=== PATIENT | male | born 1980 | race Caucasian/White ===

== ENCOUNTER 2017-02-17 13:05 | Emergency (ER) | payer OTHER ==
[~2017-02-17] VITALS: Ht 167.6 cm; Wt 78.0 kg
[2017-02-17 13:51] LABS: BASOPHILS % (AUTO) 1.2 % (0.0-2.0); EOSINOPHILS % (AUTO) 0.9 % (1.0-6.0); LYMPHOCYTES # (AUTO) 1.6 K/uL (1.0-4.8); LYMPHOCYTES % (AUTO) 14.9 % (22.0-44.0); MEAN CORPUSCULAR HEMOGLOBIN 27.7 pg (26.0-34.0); MEAN CORPUSCULAR HGB CONC 31.8 G/dL (31.0-37.0); MEAN CORPUSCULAR VOLUME 87 fL (80-100); MONOCYTES # (AUTO) 0.5 K/uL (0.1-1.0); MONOCYTES % (AUTO) 4.8 % (2.0-9.0); NEUTROPHILS # (AUTO) 8.5 K/uL (1.8-7.7); NEUTROPHILS % (AUTO) 78.2 % (40.0-70.0); PLATELET COUNT (AUTO) 320 K/uL (150-450); RED CELL DISTRIBUTION WIDTH 14.6 % (11.5-14.5); WHITE BLOOD COUNT (AUTO) 10.8 K/uL (4.5-11.0)
[2017-02-17 14:03] LABS: ANION GAP 10 mmol/L (8-16); CARBON DIOXIDE 25 mmol/L (22-29); CHLORIDE 101 mmol/L (98-107); GLOMERULAR FILTR. RATE CALC > 60 mL/min (>60); POTASSIUM 3.9 mmol/L (3.5-5.1); SODIUM SERUM 136 mmol/L (136-145); UREA NITROGEN, BLOOD 19 mg/dL (7-18)
[2017-02-17 14:08] LABS: ALANINE AMINOTRANSFERASE 76 U/L (12-78); ALBUMIN 3.8 g/dL (3.4-5.0); ASPARTATE AMINOTRANSFERASE 42 U/L (15-37); BILIRUBIN,TOTAL 0.5 mg/dL (0.1-1.0); TOTAL PROTEIN, SERUM 7.6 g/dL (6.4-8.2)
[2017-02-17] MEDS ORDERED: GABA-533 PO (14:09)
[2017-02-17] MEDS ORDERED: LISI-661 PO (14:09)
[2017-02-17] MEDS ORDERED: PERCT10 PO (14:09)
[2017-02-17 14:54] VITALS: BP 135/85
== END 2017-02-17 15:12 | disposition home or self-care (01) ==
LOC: EMS 13:07
DX: R07.89 Other chest pain (principal); M48.00 Spinal stenosis, site unspecified; G62.9 Polyneuropathy, unspecified; I10 Essential (primary) hypertension
CPT/HCPCS: 93005; 99285

== ENCOUNTER 2024-04-06 10:06 | Emergency (ER) | payer OTHER ==
[~2024-04-06] VITALS: Ht 177.8 cm; Wt 109.1 kg
[~2024-04-06 10:06] MED LIST: GABA-1201 PO; LISI-893 PO; OXYC-490 PO
[2024-04-06 10:42] VITALS: TEMP 98.3
[2024-04-06] MEDS: SODIUM CHLORIDE 0.9% 1,000 ML IV ONE (11:13)
[2024-04-06] MEDS: ONDANSETRON HCL 4 MG/2 ML VIAL IVP ONE ×2 (11:13→13:06)
[2024-04-06 11:20] LABS: BASOPHILS % (AUTO) 0.1 % (0.0-2.0); EOSINOPHILS % (AUTO) 0 % (1.0-6.0); HEMATOCRIT 42.5 % (41-53); HEMOGLOBIN 14.3 g/dL (13.5-17.5); LYMPHOCYTES # (AUTO) 0.7 K/uL (1.0-4.8); LYMPHOCYTES % (AUTO) 4.1 % (22.0-44.0); MEAN CORPUSCULAR HEMOGLOBIN 28.9 pg (26.0-34.0); MEAN CORPUSCULAR HGB CONC 33.6 G/dL (31.0-37.0); MEAN CORPUSCULAR VOLUME 86 fL (80-100); MONOCYTES # (AUTO) 0.3 K/uL (0.1-1.0); NEUTROPHILS # (AUTO) 16.2 K/uL (1.8-7.7); PLATELET COUNT (AUTO) 221 K/uL (150-450); RED BLOOD CELL COUNT(AUTO) 4.94 MIL/uL (4.50-5.90); RED CELL DISTRIBUTION WIDTH 14.1 % (11.5-14.5); WHITE BLOOD COUNT (AUTO) 17.3 K/uL (4.5-11.0)
[2024-04-06 11:21] LABS: NEUTROPHILS % (AUTO) 93.8 % (40.0-70.0)
[2024-04-06 11:29] LABS: ANION GAP 11 mmol/L (8-16); CALCIUM, TOTAL 8.5 mg/dL (8.8-10.5); CARBON DIOXIDE 22 mmol/L (22-29); CHLORIDE 96 mmol/L (98-107); CREATININE 1.14 mg/dL (0.60-1.30); GLOMERULAR FILTR. RATE CALC > 60 mL/min (>60); GLUCOSE,RANDOM 295 mg/dL (70-110); POTASSIUM 3.5 mmol/L (3.5-5.1); SODIUM SERUM 129 mmol/L (136-145); UREA NITROGEN, BLOOD 12 mg/dL (7-18)
[2024-04-06 12:30] VITALS: BP 137/90; PULSE 88; RESP 18
[2024-04-06] MEDS ORDERED: ACET-66 PO (13:01)
[2024-04-06] MEDS ORDERED: ONDA-104 PO (13:01)
[2024-04-06] MEDS ORDERED: DIPH-1130 PO (13:01)
[2024-04-06] MEDS: DIPHENOXYLATE/ATROP 2.5-0.025 MG TABLET PO ONE (13:06)
== END 2024-04-06 13:28 | disposition home or self-care (01) ==
LOC: EMS 10:06
DX: K52.9 Noninfective gastroenteritis and colitis, unspecified (principal); E11.65 Type 2 diabetes mellitus with hyperglycemia; E87.1 Hypo-osmolality and hyponatremia; I10 Essential (primary) hypertension
CPT/HCPCS: 99284; 96374; 96361; 80048; 85025; 36415; 96376; J2405; J7030

== ENCOUNTER 2024-10-02 13:11 | Emergency (ER) | payer OTHER ==
[~2024-10-02] VITALS: Ht 177.8 cm; Wt 100.0 kg
[~2024-10-02 13:11] MED LIST changes: +ACET-66 PO; +DIPH-1130 PO; +ONDA-104 PO
[2024-10-02 13:27] VITALS: TEMP 97.5
[2024-10-02 14:15] VITALS: BP 122/62; PULSE 88; RESP 17; O2SAT 99
[2024-10-02] MEDS ORDERED: MELO-107 PO (14:58)
[2024-10-02] MEDS ORDERED: LIDO700A15 TP (14:58)
[2024-10-02] MEDS ORDERED: GABA-1181 PO (14:59)
[2024-10-02] MEDS: KETOROLAC TROMETHAMINE 30 MG/ML VIAL IM ONE (15:13)
[2024-10-02] MEDS: TraMADol HCL 50 MG TABLET PO ONE (15:13)
[2024-10-02] MEDS: LIDOCAINE 5% TRANSDERMAL PATCH TD ONE (15:14)
== END 2024-10-02 15:28 | disposition home or self-care (01) ==
LOC: EMS 13:11
DX: M54.9 Dorsalgia, unspecified (principal); I10 Essential (primary) hypertension
CPT/HCPCS: 99283; 96372; J1885

== ENCOUNTER 2025-05-11 12:54 | Emergency (ER) | payer OTHER ==
[~2025-05-11] VITALS: Ht 177.8 cm; Wt 104.5 kg
[~2025-05-11 12:54] MED LIST changes: -ACET-66 PO; -DIPH-1130 PO; +GABA-1181 PO; -GABA-1201 PO; +LIDO-57 TP; +MELO-107 PO; -ONDA-104 PO; -OXYC-490 PO
[2025-05-11 12:55] VITALS: TEMP 97.7
[2025-05-11 13:49] LABS: PLATELET COUNT (AUTO) 312 K/uL (150-450); RED BLOOD CELL COUNT(AUTO) 5.51 MIL/uL (4.50-5.90); RED CELL DISTRIBUTION WIDTH 14.3 % (11.5-14.5); WHITE BLOOD COUNT (AUTO) 9.0 K/uL (4.5-11.0)
[2025-05-11] MEDS: SODIUM CHLORIDE 0.9% 1,000 ML IV ONE (13:53)
[2025-05-11] MEDS: MORPHINE SULFATE 2 MG/ML SYRINGE IVP ONE (13:53)
[2025-05-11 13:56] VITALS: BP 137/96; PULSE 103; RESP 18; O2SAT 99
[2025-05-11 13:58] LABS: CALCIUM, TOTAL 8.9 mg/dL (8.8-10.5); CREATININE 1.06 mg/dL (0.60-1.30); GLOMERULAR FILTR. RATE CALC > 60 mL/min (>60); SODIUM SERUM 130 mmol/L (136-145); UREA NITROGEN, BLOOD 15 mg/dL (7-18)
[2025-05-11 14:01] LABS: GLUCOSE,RANDOM 484 mg/dL (70-110)
[2025-05-11 14:05] LABS: ACETONE,BLOOD NEGATIVE (NEGATIVE); ASPARTATE AMINOTRANSFERASE 15 U/L (15-37); CREATINE KINASE, TOTAL ONLY 155 U/L (39-308); TOTAL PROTEIN, SERUM 7.1 g/dL (6.4-8.2)
[2025-05-11 14:06] LABS: TROPONIN I-HIGH SENSITIVITY 5 ng/L (<76)
[2025-05-11] MEDS: INSULIN REGULAR, HUMAN 100 UNITS/ML IVP ONE (14:17)
[2025-05-11 14:41] LABS: APPEARANCE,URINE CLEAR (CLEAR); GLUCOSE, URINE (UA) >=1000 mg/dL (NEGATIVE); LEUKOCYTE ESTERASE ,URINE NEGATIVE (NEGATIVE); NITRATE,URINE NEGATIVE (NEGATIVE); OCCULT BLOOD,URINE NEGATIVE (NEGATIVE); SPECIFIC GRAVITIY, URINE 1.029 (1.003-1.030)
[2025-05-11 14:51] LABS: SQUAMOUS EPITHELIAL CELL,UR Rare /LPF (None Seen)
[2025-05-11] MEDS ORDERED: IBUP-1492 PO (15:29)
[2025-05-11] MEDS ORDERED: METF-1211 PO (15:29)
[2025-05-11] MEDS ORDERED: ACET-3385 PO (15:29)
[2025-05-11 15:35] LABS: GLUCOMETER DEV NAME(LOC) ERT.7; GLUCOSE,POINT OF CARE 280 MG/DL (70-110)
== END 2025-05-11 15:55 | disposition home or self-care (01) ==
LOC: EMS 12:55
DX: E11.65 Type 2 diabetes mellitus with hyperglycemia (principal); G89.29 Other chronic pain; I10 Essential (primary) hypertension; M51.372 Other intervertebral disc degeneration, lumbosacral region with discogenic back pain and lower extremity pain; Z79.899 Other long term (current) drug therapy
CPT/HCPCS: 99285; 96374; 71045; 96361; 96375; 80048; 80076; 81001; 82009; 82550; 82962; 83880; 84484; 85025; 36415; 93005; J1815; J2270; J7030

== ENCOUNTER 2025-05-20 13:36 | Emergency (ER) | payer OTHER ==
[~2025-05-20] VITALS: Ht 177.8 cm; Wt 105.0 kg
[~2025-05-20 13:36] MED LIST changes: +ACET-3385 PO; +IBUP-1492 PO; +METF-1211 PO
[2025-05-20 13:41] VITALS: TEMP 98.1
[2025-05-20] MEDS ORDERED: METH-812 PO (17:36)
[2025-05-20] MEDS ORDERED: GABA-1181 PO (17:36)
[2025-05-20] MEDS ORDERED: MELO-108 PO (17:36)
[2025-05-20] MEDS ORDERED: HYDR-4062 PO (17:36)
[2025-05-20] MEDS ORDERED: LIDO1ADH83 TP (17:36)
[2025-05-20] MEDS: HYDROCODONE/ACETAMINOPHEN 5-325 MG TABLET PO ONE (17:42)
[2025-05-20] MEDS: KETOROLAC TROMETHAMINE 60 MG/2 ML VIAL IM ONE (17:42)
[2025-05-20 17:57] VITALS: BP 126/84; PULSE 92; RESP 18; O2SAT 97
== END 2025-05-20 18:02 | disposition home or self-care (01) ==
LOC: EMS 13:38
DX: G89.29 Other chronic pain (principal); M54.50 Low back pain, unspecified; I10 Essential (primary) hypertension; E11.40 Type 2 diabetes mellitus with diabetic neuropathy, unspecified; Z79.1 Long term (current) use of non-steroidal anti-inflammatories (NSAID); Z79.899 Other long term (current) drug therapy
CPT/HCPCS: 99283; 96372; J1885

== ENCOUNTER 2025-06-02 12:46 | Emergency (ER) | payer OTHER ==
[~2025-06-02] VITALS: Ht 177.8 cm; Wt 102.3 kg
[~2025-06-02 12:46] MED LIST changes: +HYDR-4062 PO; +LIDO1ADH83 TP; +MELO-108 PO; +METH-812 PO
[2025-06-02 12:55] VITALS: TEMP 97.9
[2025-06-02] MEDS: KETOROLAC TROMETHAMINE 30 MG/ML VIAL IVP ONE (13:41)
[2025-06-02] MEDS: SODIUM CHLORIDE 0.9% 1,000 ML IV ONE (13:41)
[2025-06-02 13:49] LABS: PLATELET COUNT (AUTO) 474 K/uL (150-450); RED BLOOD CELL COUNT(AUTO) 6.03 MIL/uL (4.50-5.90); RED CELL DISTRIBUTION WIDTH 14.7 % (11.5-14.5); WHITE BLOOD COUNT (AUTO) 10.6 K/uL (4.5-11.0)
[2025-06-02 13:54] LABS: CALCIUM, TOTAL 9.8 mg/dL (8.8-10.5); CREATININE 1.03 mg/dL (0.60-1.30); GLOMERULAR FILTR. RATE CALC > 60 mL/min (>60); GLUCOSE,RANDOM 379 mg/dL (70-110); SODIUM SERUM 132 mmol/L (136-145); UREA NITROGEN, BLOOD 15 mg/dL (7-18)
[2025-06-02 14:17] VITALS: BP 132/79; PULSE 78; RESP 20; O2SAT 98
[2025-06-02] MEDS: INSULIN REGULAR, HUMAN 100 UNITS/ML IVP ONE (15:04)
[2025-06-02 22:05] LABS: GLUCOMETER DEV NAME(LOC) ERT.7; GLUCOSE,POINT OF CARE 386 MG/DL (70-110)
== END 2025-06-02 17:18 | disposition home or self-care (01) ==
LOC: EMS 12:46
DX: E11.65 Type 2 diabetes mellitus with hyperglycemia (principal); E11.40 Type 2 diabetes mellitus with diabetic neuropathy, unspecified; I10 Essential (primary) hypertension; Z79.1 Long term (current) use of non-steroidal anti-inflammatories (NSAID); Z79.899 Other long term (current) drug therapy
CPT/HCPCS: 99284; 96374; 96375; 80048; 82962; 85025; 36415; J1885; J1815; J7030

== ENCOUNTER 2025-07-22 10:18 | Emergency (ER) | payer OTHER ==
[~2025-07-22] VITALS: Ht 177.8 cm; Wt 110.0 kg
[2025-07-22 10:21] VITALS: BP 142/77; PULSE 108; RESP 18; TEMP 97.2; O2SAT 98
[2025-07-22] MEDS ORDERED: METF-1211 PO ×2 (10:26→15:16)
[2025-07-22 10:46] LABS: GLUCOMETER DEV NAME(LOC) ER.7; GLUCOSE,POINT OF CARE 395 MG/DL (70-110)
[2025-07-22 10:58] LABS: APPEARANCE,URINE CLEAR (CLEAR); GLUCOSE, URINE (UA) >=1000 mg/dL (NEGATIVE); LEUKOCYTE ESTERASE ,URINE NEGATIVE (NEGATIVE); NITRATE,URINE NEGATIVE (NEGATIVE); OCCULT BLOOD,URINE NEGATIVE (NEGATIVE); SPECIFIC GRAVITIY, URINE 1.035 (1.003-1.030)
[2025-07-22] MEDS: SODIUM CHLORIDE 0.9% 1,000 ML IV ONE (11:06)
[2025-07-22 11:08] LABS: PLATELET COUNT (AUTO) 341 K/uL (150-450); RED BLOOD CELL COUNT(AUTO) 5.03 MIL/uL (4.50-5.90); RED CELL DISTRIBUTION WIDTH 13.8 % (11.5-14.5); WHITE BLOOD COUNT (AUTO) 10.3 K/uL (4.5-11.0)
[2025-07-22 11:14] LABS: CALCIUM, TOTAL 8.7 mg/dL (8.8-10.5); CREATININE 0.94 mg/dL (0.60-1.30); GLOMERULAR FILTR. RATE CALC > 60 mL/min (>60); SODIUM SERUM 133 mmol/L (136-145); UREA NITROGEN, BLOOD 18 mg/dL (7-18)
[2025-07-22 11:15] LABS: GLUCOSE,RANDOM 410 mg/dL (70-110)
[2025-07-22 11:30] LABS: ASPARTATE AMINOTRANSFERASE 26 U/L (15-37); TOTAL PROTEIN, SERUM 7.1 g/dL (6.4-8.2)
[2025-07-22] MEDS ORDERED: INSULIN REGULAR, HUMAN 100 UNITS/ML IVP ONE (13:15)
[2025-07-22] MEDS: INSULIN REGULAR, HUMAN 100 UNITS/ML IVP ONE (13:52)
== END 2025-07-22 15:57 | disposition home or self-care (01) ==
LOC: EMS 10:24
DX: E11.65 Type 2 diabetes mellitus with hyperglycemia (principal); I10 Essential (primary) hypertension; F15.90 Other stimulant use, unspecified, uncomplicated; Z79.899 Other long term (current) drug therapy; Z76.0 Encounter for issue of repeat prescription
CPT/HCPCS: 99283; 96374; 96361; 80053; 81001; 82962; 85025; 36415; J1815; J7030